=== PATIENT | female | born 1975 | race Caucasian/White ===

== ENCOUNTER 2017-04-20 09:45 | Outpatient (CLI) | payer MEDICAID ==
--- NOTE | 2017-04-23 18:05 | Mammography Report ---
EXAM: SCREENING DIGITAL MAMMOGRAM 04/22/2017 INDICATION: 41 year old for baseline The patient will need to return for additional imaging due to technical factors. We will contact the patient to schedule their return. IMPRESSION: Incomplete. RECOMMENDATION: Additional imaging. BIRADS Category: 0 - Incomplete. STANDARD QUALIFYING STATEMENTS 1. This examination was reviewed with the aid of Computer-Aided Detection (CAD) . 2. A negative or benign imaging report should not delay biopsy if clinically suspicious findings are present. Consider surgical consultation if warranted. More than 5% of cancers are not identified by imaging. 3. Dense breasts may obscure an underlying neoplasm. JOB #: [id number] EXT JOB #: [id number] WILFREDO
== END 2017-04-20 09:46 | disposition home or self-care (01) ==
LOC: DI 09:45
PROVIDERS: ATTEND Obstetrics & Gynecology
DX: Z12.31 Encounter for screening mammogram for malignant neoplasm of breast (principal)
CPT/HCPCS: 77067

== ENCOUNTER 2017-07-17 08:06 | Outpatient (CLI) | payer MEDICAID ==
--- NOTE | 2017-08-01 13:35 | Mammography Report ---
REVISED: ORIGINAL REPORT RELEASED 04/24/2017 @ 0623; ADDENDUM RELEASED 07/19/2017 @ 1600 REPORT & ADDENDUM MOVED TO [facility] [id number] ON 08/01/2017 jl EXAM: [id number] [facility] ([id number]) EXAM: SCREENING DIGITAL MAMMOGRAM 04/20/2017 INDICATION: 41 year old for baseline The patient will need to return for additional imaging due to technical factors. We will contact the patient to schedule their return. IMPRESSION: Incomplete. RECOMMENDATION: Additional imaging. BIRADS Category: 0 - Incomplete. STANDARD QUALIFYING STATEMENTS 1. This examination was reviewed with the aid of Computer-Aided Detection (CAD) . 2. A negative or benign imaging report should not delay biopsy if clinically suspicious findings are present. Consider surgical consultation if warranted. More than 5% of cancers are not identified by imaging. 3. Dense breasts may obscure an underlying neoplasm. JOB #: [id number] EXT JOB #: [id number] Parts Advisor: Reading Radiologist: Inderjit White MD Releasing Radiologist: Inderjit White MD Released Date Time: 04/24/17622 <Electronically signed by Inderjit White MD> cc: Javier Dumont MD; Eduardo Schroeder MD ADDENDUM ADDENDUM: The patient initially presented on 04/20/2017, and returned on 2016 for an additional image due to technical factors. This is the patient's baseline examination. TECHNIQUE: Routine CC and MLO projections were obtained of the breasts. FINDINGS: The breasts demonstrate heterogeneously dense fibroglandular parenchyma bilaterally. No suspicious masses, clustered microcalcifications, or regions of architectural distortion are identified. IMPRESSION: NEGATIVE EXAMINATION. RECOMMENDATION: Routine annual screening unless otherwise clinically indicated. BI-RADS category 1, negative. Addendum Parts Advisor: MICHAEL Addendum Reading Radiologist: Inderjit White MD Addendum Releasing Radiologist: Inderjit White MD Addendum Released Date Time: 07/19/17 1600 [facility]
--- NOTE | 2017-08-01 13:38 | Mammography Report ---
REVISED: ORIGINAL REPORT RELEASED 04/24/2017 @ 0623; ADDENDUM RELEASED 07/19/2017 @ 1600 REPORT & ADDENDUM MOVED TO [facility] [id number] ON 08/01/2017 jl EXAM: [id number] [facility] ([id number]) EXAM: SCREENING DIGITAL MAMMOGRAM 04/20/2017 INDICATION: 41 year old for baseline The patient will need to return for additional imaging due to technical factors. We will contact the patient to schedule their return. IMPRESSION: Incomplete. RECOMMENDATION: Additional imaging. BIRADS Category: 0 - Incomplete. STANDARD QUALIFYING STATEMENTS 1. This examination was reviewed with the aid of Computer-Aided Detection (CAD) . 2. A negative or benign imaging report should not delay biopsy if clinically suspicious findings are present. Consider surgical consultation if warranted. More than 5% of cancers are not identified by imaging. 3. Dense breasts may obscure an underlying neoplasm. 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 This is the patient's baseline examination. TECHNIQUE: Routine CC and MLO projections were obtained of the breasts. FINDINGS: The breasts demonstrate heterogeneously dense fibroglandular parenchyma bilaterally. No suspicious masses, clustered microcalcifications, or regions of architectural distortion are identified. IMPRESSION: NEGATIVE EXAMINATION. RECOMMENDATION: Routine annual screening unless otherwise clinically indicated. BI-RADS category 1, negative. Addendum Wind Turbine Electrical Engineer: MICHAEL Addendum Reading Radiologist: Inderjit White MD Addendum Releasing Radiologist: Inderjit White MD Addendum Released Date Time: 07/19/17 1600 [facility]
== END 2017-07-17 08:07 | disposition home or self-care (01) ==
LOC: DI 08:06
PROVIDERS: ATTEND Obstetrics & Gynecology
DX: Z12.31 Encounter for screening mammogram for malignant neoplasm of breast (principal)
CPT/HCPCS: 77067

== ENCOUNTER 2017-11-10 19:51 | Emergency (ER) | payer OTHER, MEDICAID ==
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
[2017-11-10] MEDS ORDERED: IBUPROFEN 600 MG TABLET PO STA (20:14)
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
[2017-11-10 21:40] VITALS: BP 140/81
== END 2017-11-10 21:43 | disposition home or self-care (01) ==
LOC: ED 19:51
DX: S16.1XXA Strain of muscle, fascia and tendon at neck level, initial encounter (principal); V89.2XXA Person injured in unspecified motor-vehicle accident, traffic, initial encounter; F17.200 Nicotine dependence, unspecified, uncomplicated
CPT/HCPCS: 72040; 99283; A9270

== ENCOUNTER 2018-01-26 13:24 | Emergency (ER) | payer BC, MEDICAID ==
[2018-01-26 13:35] VITALS: BP 116/89
--- NOTE | 2018-01-26 14:28 | ED Physician Documentation ---
PD HPI URI - Stated complaint Stated Complaint: COUGH/CHEST WALL PX - Chief complaint Chief Complaint: General - History obtained from History obtained from: Patient - History of Present Illness Timing - onset: Yesterday Timing duration: Days (2) Timing details: Abrupt onset, Still present Associated symptoms: Fever, Chills, Nasal congestion, Sore throat, Dry cough, Dyspnea. No: NVD, Bilateral edema Contributing factors: Sick contact (her daughter with same symptoms the past 5- 6 days and being seen in ED as well.) Improves by: No: Medication (tried OTC cough med) Worsened by: Activity, Breathing Similar symptoms before: Has not had sx before Recently seen: Not recently seen Review of Systems Constitutional: reports: Fever, Chills, Myalgias Nose: reports: Rhinorrhea / runny nose, Congestion Throat: reports: Sore throat Cardiac: denies: Chest pain / pressure, Palpitations Respiratory: reports: Dyspnea, Cough GI: denies: Nausea, Vomiting, Diarrhea Skin: denies: Rash, Lesions Neurologic: reports: Generalized weakness. 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: Tubal ligation - Present Medications Home Medications: Ambulatory Orders Medication Instructions Recorded Confirmed Alprazolam [Xanax] 0.5 mg PO Q6HR 11/10/17 01/26/18 Butalb/Acetaminophen/Caffeine 1 tab PO BID 11/10/17 01/26/18 [Yttyzn-Nrwmkash-Btjj 50-325-40] FLUoxetine [PROzac] 10 mg PO DAILY 11/10/17 01/26/18 Albuterol Sulf [Ventolin Hfa 1 - 2 puffs INH Q4HR PRN #1 inhaler 01/26/18 Inhaler] Benzonatate [Tessalon] 100 mg PO TID PRN #25 capsule 01/26/18 Dexamethasone [Decadron] 4 mg PO DAILY #5 tablet 01/26/18 - Allergies Allergies/Adverse Reactions: Allergies Allergy/AdvReac Type Severity Reaction Status Date / Time Penicillins Allergy Unknown Verified 01/26/18 13:35 - Social History Does the pt smoke?: Yes Smoking Status: Current every day smoker Does the pt drink ETOH?: No Does the pt have substance abuse?: No - Immunizations Immunizations are current?: Yes - POLST Patient has POLST: No PD ED PE NORMAL - Vitals Vital signs reviewed: Yes - General General: Alert and oriented X 3, No acute distress, Well developed/nourished - HEENT HEENT: Ears normal, Pharynx benign - Neck Neck: Supple, no meningeal sign, No adenopathy - Cardiac Cardiac: RRR, No murmur - Respiratory Respiratory: Clear bilaterally, Other (reptitive deep cough while in ER. ) - Abdomen Abdomen: Soft, Non tender - Back Back: No CVA TTP - Derm Derm: Normal color, Warm and dry, No rash - Neuro Neuro: Alert and oriented X 3, No motor deficit, Normal speech Results - Vitals Vitals: Oxygen O2 Source Room air PD MEDICAL DECISION MAKING - ED course Complexity details: considered differential (sounds like URI and her daughter with same symptoms for past 5-6 days. ), d/w patient Departure - Departure Disposition: 01 Home, Self Care Clinical Impression: Upper respiratory infection Qualifiers: URI type: unspecified URI Qualified Code(s): J06.9 - Acute upper respiratory infection, unspecified Condition: Stable Record reviewed to determine appropriate education?: Yes Instructions: ED Upper Resp Infec No Abx Tx Follow-Up: Eduardo Schroeder MD [Primary Care Provider] - Prescriptions: Albuterol Sulf [Ventolin Hfa Inhaler] 1 - 2 puffs INH Q4HR PRN #1 inhaler PRN Reason: Shortness Of Air/Wheezing Benzonatate [Tessalon] 100 mg PO TID PRN #25 capsule PRN Reason: Cough Dexamethasone [Decadron] 4 mg PO DAILY #5 tablet Comments: These infections are typically viral and so we treat the process of the symptoms rather than the germs themselves. We try to treat the inflammation irritation and spasming with albuterol inhaler 2 puffs 4 times a day for the next 7-10 days, Decadron steroid for inflammation for the next 5 days., And Tessalon if needed for cough. Tylenol or ibuprofen can be used for fevers and pains. He can still use cough drops or cough syrup as well. Symptoms should taper down over the next few days. The cough itself may persist some degree for a couple of weeks but usually mildly. Forms: Activity restrictions Discharge Date/Time: 01/26/18 15:22
[2018-01-26] MEDS ORDERED: BENZONATATE 100 MG CAPSULE PO STA (14:48)
[2018-01-26] MEDS ORDERED: DEXAMETHASONE 10 MG/ML VIAL PO STA (14:48)
== END 2018-01-26 15:22 | disposition home or self-care (01) ==
LOC: ED 13:24
DX: J06.9 Acute upper respiratory infection, unspecified (principal); F17.200 Nicotine dependence, unspecified, uncomplicated
CPT/HCPCS: 99283; A9270

== ENCOUNTER 2018-01-28 12:32 | Emergency (ER) | payer BC, MEDICAID ==
[2018-01-28 12:47] VITALS: BP 125/84
--- NOTE | 2018-01-28 13:25 | XRAY Preliminary Report ---
Exam: XR CHEST 2 VIEW X-RAY IMPRESSION: Normal 2-view chest radiography. [facility] SITE ID: [id number]
--- NOTE | 2018-01-28 13:29 | XRAY Report ---
EXAM: CHEST RADIOGRAPHY EXAM DATE: 01/28/2018 01:02 PM. CLINICAL HISTORY: Chest congestion and painful left ear for 4 days. Blood coming out of the left ear this morning. COMPARISON: None. TECHNIQUE: 2 views. FINDINGS: Lungs/Pleura: No focal opacities evident. No pleural effusion. No pneumothorax. Normal volumes. Mediastinum: Heart and mediastinal contours are unremarkable. Other: Cholecystectomy. IMPRESSION: Normal 2-view chest radiography. [facility] Referring Provider Line: [phone] SITE ID: [id number]
[2018-01-28] MEDS ORDERED: IBUPROFEN 800 MG TABLET PO STA (14:00)
--- NOTE | 2018-01-28 14:02 | ED Physician Documentation ---
History of Present Illness - Stated complaint Stated Complaint: CHEST CONGESTION/EAR PAIN - Chief complaint Chief Complaint: Heent - History obtained from History obtained from: Patient - History of Present Illness Timing: Last night Pain level max: 8 Pain level now: 7 - Additonal information Additional information: Patient is a 42-year-old female presents to the emergency department feeling ill since last week, last night developed sudden onset of left ear pain that is gotten progressively worse. States there was a small amount of bloody drainage this morning. Review of Systems Constitutional: denies: Fever, Chills Ears: reports: Ear pain Nose: reports: Rhinorrhea / runny nose, Congestion Throat: denies: Sore throat Cardiac: denies: Chest pain / pressure Respiratory: reports: Cough. 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 - Present Medications Home Medications: Ambulatory Orders Medication Instructions Recorded Confirmed Alprazolam [Xanax] 0.5 mg PO Q6HR 11/10/17 01/28/18 Butalb/Acetaminophen/Caffeine 1 tab PO BID 11/10/17 01/28/18 [Gfggjn-Wddkxbyd-Fjkp 50-325-40] FLUoxetine [PROzac] 10 mg PO DAILY 11/10/17 01/28/18 Albuterol Sulf [Ventolin Hfa 1 - 2 puffs INH Q4HR PRN #1 inhaler 01/26/18 Inhaler] Benzonatate [Tessalon] 100 mg PO TID PRN #25 capsule 01/26/18 01/28/18 Azithromycin [Zithromax] 0 mg PO DAILY #6 tablet 01/28/18 Hydrocodone/Acetaminophen 1 - 2 each PO Q6H PRN #12 tablet 01/28/18 [Hydrocodon-Acetaminophen 5-325] - Allergies Allergies/Adverse Reactions: Allergies Allergy/AdvReac Type Severity Reaction Status Date / Time Penicillins Allergy Unknown Verified 01/26/18 13:35 - Social History Does the pt smoke?: Yes Smoking Status: Current every day smoker Does the pt drink ETOH?: No Does the pt have substance abuse?: No - Immunizations Immunizations are current?: Yes - POLST Patient has POLST: No PD ED PE NORMAL - Vitals Vital signs reviewed: Yes - General General: Alert and oriented X 3, No acute distress, Well developed/nourished - HEENT HEENT: PERRL, Moist mucous membranes, Pharynx benign, Other (Right ear is normal. Left tympanic membrane is erythematous, dull, bulging with loss of landmarks. Purulent fluid present. No perforation is visualized. No mastoid tenderness) - Neck Neck: Supple, no meningeal sign, No adenopathy - Cardiac Cardiac: RRR, Strong equal pulses - Respiratory Respiratory: No respiratory distress, Clear bilaterally - Derm Derm: Warm and dry, No rash - Neuro Neuro: Alert and oriented X 3 - Psych Psych: Normal mood, Normal affect Results - Vitals Vitals: Oxygen O2 Source Room air - Rads (name of study) cxr Radiology: Prelim report reviewed, EMP read contemporaneously, See rad report ( No acute disease) PD MEDICAL DECISION MAKING - ED course Complexity details: reviewed old records, reviewed results, considered differential, d/w patient ED course: Patient is a 42-year-old female who presents to the emergency department with what appears to be a viral upper respiratory infection and a secondary left acute otitis media. Will place on pain medication and antibiotics for home. She is well-appearing, nontoxic. Patient counseled regarding signs and symptoms for which I believe and urgent re-evaluation would be necessary. Patient with good understanding of and agreement to plan and is comfortable going home at this time This document was made in part using voice recognition software. While efforts are made to proofread this document, sound alike and grammatical errors may occur. Departure - Departure Disposition: 01 Home, Self Care Clinical Impression: Otitis media Qualifiers: Otitis media type: suppurative Chronicity: acute Laterality: left Recurrence: not specified as recurrent Spontaneous tympanic membrane rupture: without spontaneous rupture Qualified Code(s): H66.002 - Acute suppurative otitis media without spontaneous rupture of ear drum, left ear Condition: Good Instructions: ED Otitis Media Acute Adult Follow-Up: Eduardo Schroeder MD [Primary Care Provider] - Within 1 week Prescriptions: Azithromycin [Zithromax] 0 mg PO DAILY #6 tablet Hydrocodone/Acetaminophen [Hydrocodon-Acetaminophen 5-325] 1 - 2 each PO Q6H PRN #12 tablet PRN Reason: pain Comments: Take all antibiotics until gone. Return if you worsen. Do not drink alcohol or drive while on narcotic pain medicine. Note that many narcotic pain relievers also contain tylenol/acetaminophen. Please ensure that your total dose of acetaminophen from all sources does not exceed 3 grams (3000mg) per day. You may constipated on this medication, take a stool softener such as "Colace" twice a day while you are on it. Also recommend a ypeq-eue-lgtetlu laxative such as senna or MiraLAX any day that you do not have a bowel movement. If you received narcotic pain medication in the emergency department, do not drive or operate machinery for the next 24 hours. Discharge Date/Time: 01/28/18 14:18
== END 2018-01-28 14:18 | disposition home or self-care (01) ==
LOC: ED 12:32
DX: H66.002 Acute suppurative otitis media without spontaneous rupture of ear drum, left ear (principal); F17.200 Nicotine dependence, unspecified, uncomplicated
CPT/HCPCS: 71046; 99283; A9270

== ENCOUNTER 2018-05-12 09:46 | Emergency (ER) | payer MEDICAID ==
[2018-05-12] MEDS ORDERED: IBUPROFEN 800 MG TABLET PO STA (10:47)
--- NOTE | 2018-05-12 10:47 | ED Physician Documentation ---
PD HPI LOWER EXT INJURY - Stated complaint Stated Complaint: R KNEE INJ - Chief complaint Chief Complaint: Ext Problem - History obtained from History obtained from: Patient - History of Present Illness PD HPI LOW EXT INJURY LOCATION: Right, Knee Type of injury: Twist Where injury occurred: Other (grocery store yesterday.) Timing - onset: Yesterday Timing - duration: Days (1) Timing - details: Gradual onset Pain level max: 6 Pain level now: 5 Improved by: Rest Worsened by: Moving, Palpating Associated symptoms: No: Weakness, Numbness, Tingling, Swelling Similar symptoms before: Has not had sx before Recently seen: Not recently seen Review of Systems Constitutional: denies: Fever, Chills GI: denies: Vomiting : denies: Now EGA Skin: denies: Rash Musculoskeletal: denies: Neck pain, Back pain PD PAST MEDICAL HISTORY - Past Medical History Past Medical History: Yes Cardiovascular: None Respiratory: None Endocrine/Autoimmune: None Psych: Depression, Anxiety - Past Surgical History Past Surgical History: Yes 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 - Present Medications Home Medications: Ambulatory Orders Medication Instructions Recorded Confirmed Alprazolam [Xanax] 0.5 mg PO Q6HR 11/10/17 01/28/18 Butalb/Acetaminophen/Caffeine 1 tab PO BID 11/10/17 01/28/18 [Nucxxl-Aidfowaq-Stdl 50-325-40] FLUoxetine [PROzac] 10 mg PO DAILY 11/10/17 01/28/18 Albuterol Sulf [Ventolin Hfa 1 - 2 puffs INH Q4HR PRN #1 inhaler 01/26/18 Inhaler] Benzonatate [Tessalon] 100 mg PO TID PRN #25 capsule 01/26/18 01/28/18 Azithromycin [Zithromax] 0 mg PO DAILY #6 tablet 01/28/18 Hydrocodone/Acetaminophen 1 - 2 each PO Q6H PRN #12 tablet 01/28/18 [Hydrocodon-Acetaminophen 5-325] - Allergies Allergies/Adverse Reactions: Allergies Allergy/AdvReac Type Severity Reaction Status Date / Time Penicillins Allergy Unknown Verified 05/12/18 09:52 - Social History Does the pt smoke?: Yes Smoking Status: Current every day smoker Does the pt drink ETOH?: No Does the pt have substance abuse?: No - Immunizations Immunizations are current?: Yes - POLST Patient has POLST: No PD ED PE NORMAL - Vitals Vital signs reviewed: Yes - General General: Alert and oriented X 3, No acute distress - HEENT HEENT: Moist mucous membranes - Neck Neck: Supple, no meningeal sign - Cardiac Cardiac: RRR - Respiratory Respiratory: No respiratory distress, Clear bilaterally - Derm Derm: Warm and dry - Extremities Extremities: Other (R knee - no significant bony tenderness over the knee. Does have MCL laxity. LCL, ACL, PCL intact. unable to tolerate meniscus testing. NVI) - Neuro Neuro: Alert and oriented X 3 Results - Vitals Vitals: Vital Signs - 24 hr 05/12/18 05/12/18 09:50 10:57 Temperature 36.5 C 36.9 C Heart Rate 87 64 Respiratory 18 16 Rate Blood Pressure 143/88 H 120/77 O2 Saturation 98 100 Oxygen O2 Source Room air PD MEDICAL DECISION MAKING - ED course Complexity details: considered differential, d/w patient ED course: Patient is a 42-year-old female presents to the emergency department with right knee pain, appears to be an MCL sprain. Placed an articulating knee brace and will have her follow-up with her doctor and/or orthopedics for further care. She is well-appearing, nontoxic. No evidence of infection. No bony tenderness. Will hold x-rays at this time. Patient counseled regarding signs and symptoms for which I believe and urgent re-evaluation would be necessary. Patient with good understanding of and agreement to plan and is comfortable going home at this time This document was made in part using voice recognition software. While efforts are made to proofread this document, sound alike and grammatical errors may occur. - Sepsis Event Vital Signs: Vital Signs - 24 hr 05/12/18 05/12/18 09:50 10:57 Temperature 36.5 C 36.9 C Heart Rate 87 64 Respiratory 18 16 Rate Blood Pressure 143/88 H 120/77 O2 Saturation 98 100 Oxygen O2 Source Room air Departure - Departure Disposition: 01 Home, Self Care Clinical Impression: Knee MCL sprain Qualifiers: Encounter type: initial encounter Laterality: right Qualified Code(s): S83.411A - Sprain of medial collateral ligament of right knee, initial encounter Condition: Good Instructions: ED Sprain Knee Collateral Ligaments Follow-Up: Eduardo Schroeder MD [Primary Care Provider] - Within 1 week Comments: It appears that you have sprained your MCL today. Return if you worsen. You should follow-up with your doctor in 1 week for repeat evaluation. Until then wear the knee immobilizer as this will help to prevent lateral instability in the knee. you may utilize Motrin or Tylenol as needed for pain. Discharge Date/Time: 05/12/18 11:17
[2018-05-12 10:58] VITALS: BP 120/77
== END 2018-05-12 11:17 | disposition home or self-care (01) ==
LOC: ED 09:46
DX: S83.411A Sprain of medial collateral ligament of right knee, initial encounter (principal); W01.0XXA Fall on same level from slipping, tripping and stumbling without subsequent striking against object, initial encounter; Y92.512 Supermarket, store or market as the place of occurrence of the external cause
CPT/HCPCS: 99283; A9270

== ENCOUNTER 2018-10-16 10:04 | Outpatient (CLI) | payer BC ==
[2018-10-16 11:49] LABS: THYROID STIMULATING HORMONE 1.43 uIU/mL (0.34-5.60)
[2018-10-16 11:51] LABS: FREE T4 (FREE THYROXINE) 0.63 ng/dL (0.58-1.64)
== END 2018-10-16 10:05 | disposition home or self-care (01) ==
LOC: LAB 10:04
PROVIDERS: ATTEND Nurse Practitioner Obstetrics & Gynecology
DX: R63.5 Abnormal weight gain (principal)
CPT/HCPCS: 36415; 82951; 82952; 84439; 84443

== ENCOUNTER 2020-09-30 17:57 | Emergency (ER) | payer BC, MEDICAID ==
[2020-09-30 18:29] LABS: RAPID STREP SCREEN Negative (Negative)
--- NOTE | 2020-09-30 18:43 | ED Physician Documentation ---
History of Present Illness - Stated complaint Stated Complaint: SORE THROAT/COUGH - Chief complaint Chief Complaint: Heent - History obtained from History obtained from: Patient - History of Present Illness Timing: Prior to arrival - Additonal information Additional information: 45-year-old female presents emergency department with acute onset sore throat that began today. She reports it feels like sandpaper in her throat. No fevers. Positive dry cough. No congestion. No tonsillar exudate. She has no chest pain or shortness of breath. No abdominal pain nausea or vomiting. Non- smoker Review of Systems Constitutional: denies: Fever, Myalgias, Fatigue Eyes: reports: Reviewed and negative Ears: reports: Reviewed and negative Nose: denies: Rhinorrhea / runny nose, Congestion Throat: reports: Sore throat. 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 - Present Medications Home Medications: Ambulatory Orders Medication Instructions Recorded Confirmed Alprazolam [Xanax] 0.5 mg PO Q6HR 11/10/17 01/28/18 Butalb/Acetaminophen/Caffeine 1 tab PO BID 11/10/17 01/28/18 [Xompwa-Wvbgygrv-Ymza 50-325-40] FLUoxetine [PROzac] 10 mg PO DAILY 11/10/17 01/28/18 Albuterol Sulf [Ventolin Hfa 1 - 2 puffs INH Q4HR PRN #1 inhaler 01/26/18 01/28/18 Inhaler] Benzonatate [Tessalon] 100 mg PO TID PRN #25 capsule 01/26/18 01/28/18 Azithromycin [Zithromax] 0 mg PO DAILY #6 tablet 01/28/18 Hydrocodone/Acetaminophen 1 - 2 each PO Q6H PRN #12 tablet 01/28/18 [Hydrocodon-Acetaminophen 5-325] - Allergies Allergies/Adverse Reactions: Allergies Allergy/AdvReac Type Severity Reaction Status Date / Time Penicillins Allergy Unknown Verified 09/30/20 18:11 - Social History Does the pt smoke?: Yes Smoking Status: Current every day smoker Does the pt drink ETOH?: No Does the pt have substance abuse?: No - Immunizations Immunizations are current?: Yes - POLST Patient has POLST: No PD ED PE EXPANDED - General General: Alert, No acute distress - HEENT HEENT: Atraumatic, PERRL, Ears normal, Pharyngeal erythema (Posterior oropharynx erythema without tonsillar exudate. Uvula is midline. No soft palate asymmetry or swelling.), Dentition normal. No: Swollen tonsils, Tonsillar exudate, Soft palate petecchiae - Neck Neck: Supple w/out meningeal sx, No tenderness. No: Adenopathy - Cardiac Cardiac: Regular Rate, Radial strong equal, Cap refill < 2 sec - Respiratory Respiratory: Clear to ausultation fiorella. No: Distress, Labored - Abdomen Abdomen: Normal Bowel sounds. No: Tender to palpation - Neuro Neuro: Alert and Oriented X 3, CNII-XII intact Results - Vitals Vitals: Vital Signs - 24 hr 09/30/20 18:06 Temperature 36.2 C L Heart Rate 85 Respiratory 16 Rate Blood Pressure 167/105 H O2 Saturation 97 Oxygen O2 Source Room air - Labs Labs: Laboratory Tests 09/30/20 18:17 Group A Strep Rapid Negative PD MEDICAL DECISION MAKING - ED course Complexity details: reviewed results, considered differential, d/w patient ED course: 45-year-old female presents emergency department for evaluation of acute sore throat. Rapid strep is negative. By [facility] criteria she does not meet the requirements for empiric antibiotics. Will defer unless culture is positive. Her cardiopulmonary exam is unremarkable. No hypoxia or tachypnea. However we will screen for COVID-19. I did recommend NSAID or Tylenol [id number] p henry warm salt water gargles and Hydration. 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 Emergent return precautions discussed Departure - Departure Disposition: 01 Home, Self Care Clinical Impression: Sore throat, Encounter for screening laboratory testing for COVID-19 virus Condition: Stable Record reviewed to determine appropriate education?: Yes Instructions: ED Pharyngitis Viral Comments: Your rapid strep test is negative. As we discussed we will only prescribe antibiotics if the culture is positive. However the most likely cause of your sore throat and cough is a virus. We are screening you for COVID-19. You have a Covid test pending. You need to self quarantine until the result is done and negative. Do not leave your house. Do not get near anybody. The results should be done in 48 to 72 hours. We will call with a positive result, the fastest way to get a negative result for confirmation though is to go to the hospital website at [email or web address], click on the my [facility] [employer] tab and sign up for the patient portal. If any friends or family get sick and would like to have a Covid test done, but do not have signs or symptoms that would necessitate being hospitalized, we enc ourage testing through our coronavirus swabbing station, call [phone] to schedule an appointment. Return to the emergency department if you lose the ability to swallow or handle your oral secretions, or suddenly short of breath or have severe chest pain or feel that you cannot breathe adequately. Please continue to take the Tylenol and ibuprofen at home for pain control. I do recommend that you continue to gargle with warm salt water and stay very well-hydrated.
[2020-09-30 18:52] VITALS: BP 154/98
== END 2020-09-30 18:52 | disposition home or self-care (01) ==
LOC: ED 17:57
DX: J02.9 Acute pharyngitis, unspecified (principal); R05 Cough; Z20.828 Contact with and (suspected) exposure to other viral communicable diseases; F17.200 Nicotine dependence, unspecified, uncomplicated; Z88.0 Allergy status to penicillin
CPT/HCPCS: 87070; 87430; 99282; 99283

== ENCOUNTER 2020-11-19 08:00 | Outpatient (CLI) | payer MEDICAID ==
[2020-11-19 21:29] LABS: CANDIDA GROUP DNA POSITIVE (NEGATIVE); CANDIDA KRUSEI DNA NEGATIVE (NEGATIVE); TRICHOMONAS VAGINALIS DNA NEGATIVE (NEGATIVE)
== END 2020-11-19 23:59 | disposition home or self-care (01) ==
LOC: LAB.R 08:00
PROVIDERS: ATTEND Nurse Practitioner Obstetrics & Gynecology
DX: N76.0 Acute vaginitis (principal)
CPT/HCPCS: 87661; 87801

== ENCOUNTER 2020-11-23 18:39 | Outpatient (CLI) | payer MEDICAID ==
--- NOTE | 2020-11-24 09:06 | Ultrasound Report ---
PROCEDURE: Pelvic w/Transvaginal INDICATIONS: LT PELVIC PAIN, LT SIDE OVARIAN CYST TECHNIQUE: Real-time scanning was performed of the pelvic organs, with image documentation. Additional endovagi nal scanning was necessary due to incomplete visualization of the adnexal and endometrial structures by transabdominal scanning. COMPARISON: None. FINDINGS: No pathologic free abdominal or pelvic fluid. Uterus: Uterus is normal in size at 5.2 x 5.7 x 9.6 cm. The endometrium measures 9.6 mm in combined thickness. A suspected right-sided posterior small subserosal fibroid is identified, measuring 1.0 x 0.7 x 1.1 cm. Ovaries: The right ovary measures 2.9 x 2.1 x 3.2 cm with a simple cyst measuring up to 1.9 cm in ma ximal dimension. The left ovary measures 2.2 x 1.7 x 2.3 cm, and there is a small echogenic focus marcella suring up to 1.6 cm within the left ovary likely represents a resolving hemorrhagic ovarian cyst. IMPRESSION: A definite source of left-sided pelvic pain is not seen. There is a small echogenic focus at the left ovary however that may represent an involuting hemorrhagic left ovarian cyst measuring only 1.6 cm i n maximal dimension. No abnormal adjacent free fluid is seen. Normal-appearing endometrial lining. Po ssible small 1.1 cm uterine fibroid at the posterior right fundus. Reviewed by: Dustin Salas MD on 11/24/2020 9:05 AM PST Approved by: Dustin Salas MD on 11/24/2020 9:05 AM PST Station ID: [id number]
== END 2020-11-23 18:40 | disposition home or self-care (01) ==
LOC: DI 18:39
PROVIDERS: ATTEND Nurse Practitioner Obstetrics & Gynecology
DX: R10.2 Pelvic and perineal pain (principal); N83.202 Unspecified ovarian cyst, left side

== ENCOUNTER 2022-08-19 10:29 | Emergency (ER) | payer MEDICAID ==
[2022-08-19 10:39] VITALS: BP 152/92
[2022-08-19] MEDS ORDERED: KETOROLAC 60 MG/2 ML VIAL IM STA (10:52)
--- NOTE | 2022-08-19 10:57 | ED Physician Documentation ---
PD HPI LOWER EXT INJURY - Stated complaint Stated Complaint: BOTH LEGS PX - Chief complaint Chief Complaint: Ext Problem - History obtained from History obtained from: Patient - Additional information Additional information: She is trying to get back in shape and lose some weight and 2 nights ago she was doing yoga and since then she has had pain in both hips in the groin on both sides. It is worse if she lifts the legs. No back pain. No weakness numbness or tingling in the legs. 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 - Present Medications Home Medications: Ambulatory Orders Medication Instructions Recorded Confirmed ALPRAZolam [Xanax] 0.5 mg PO Q6HR PRN 11/10/17 08/19/22 Buspirone HCl 7.5 mg PO BID 08/19/22 08/19/22 Cyclobenzaprine [Flexeril] 10 mg PO TID PRN #20 tablet 08/19/22 HYDROcod/ACETAM 5/325 [[place] 5/325] 1 - 2 tab PO Q6H PRN #15 tablet 08/19/22 Sumatriptan Succinate [Imitrex] 100 mg PO PRN PRN 08/19/22 08/19/22 buPROPion HCL [Bupropion Xl] 150 mg PO DAILY 08/19/22 08/19/22 - Allergies Allergies/Adverse Reactions: Allergies Allergy/AdvReac Type Severity Reaction Status Date / Time Penicillins Allergy Unknown Verified 08/19/22 10:38 - Social History Does the pt smoke?: Yes Smoking Status: Current every day smoker Does the pt drink ETOH?: No Does the pt have substance abuse?: No - Immunizations Immunizations are current?: Yes - POLST Patient has POLST: No PD ED PE NORMAL - Vitals Vital signs reviewed: Yes - General General: Alert and oriented X 3, No acute distress - Abdomen Abdomen: Normal bowel sounds, Soft, Non tender - Back Back: No CVA TTP, No spinal TTP - Derm Derm: Normal color, Warm and dry - Extremities Extremities: Other (I am not able to elicit any tenderness in the groin or over the hips. She does have significant pain with flexion at both hips and because of pain cannot hold either leg off the bed for long period internal and external rotation of the legs is painless.) - Neuro Neuro: Alert and oriented X 3, Normal speech Results - Vitals Vitals: Vital Signs - 24 hr 08/19/22 10:37 Temperature 36.1 C L Heart Rate 75 Respiratory 14 Rate Blood Pressure 152/92 H O2 Saturation 100 Oxygen O2 Source Room air PD MEDICAL DECISION MAKING - ED course ED course: 46-year-old woman with bilateral hip flexor strains resistant to OTC medications. Departure - Departure Disposition: 01 Home, Self Care Clinical Impression: Strain of flexor muscle of left hip Qualifiers: Encounter type: initial encounter Qualified Code(s): S76.012A - Strain of muscle, fascia and tendon of left hip, initial encounter Strain of flexor muscle of right hip Qualifiers: Encounter type: initial encounter Qualified Code(s): S76.011A - Strain of muscle, fascia and tendon of right hip, initial encounter Condition: Good Record reviewed to determine appropriate education?: Yes Instructions: ED Strain Muscle Ext Prescriptions: Cyclobenzaprine [Flexeril] 10 mg PO TID PRN #20 tablet PRN Reason: Spasms HYDROcod/ACETAM 5/325 [[place] 5/325] 1 - 2 tab PO Q6H PRN #15 tablet PRN Reason: Pain Comments: Heat, light activity and gentle stretching. You can use ibuprofen in addition to the prescription pain medications. Follow-up with your doctor in a week if not better. Return for new or worsening symptoms. Discharge Date/Time: 08/19/22 11:13
== END 2022-08-19 11:13 | disposition home or self-care (01) ==
LOC: ED 10:29
DX: S76.012A Strain of muscle, fascia and tendon of left hip, initial encounter (principal); S76.011A Strain of muscle, fascia and tendon of right hip, initial encounter; Y93.B9 Activity, other involving muscle strengthening exercises; F17.200 Nicotine dependence, unspecified, uncomplicated
CPT/HCPCS: 96372; 99282; 99283

== ENCOUNTER 2022-10-25 09:22 | Outpatient (CLI) | payer MEDICAID ==
[2022-10-25 09:41] LABS: BASOPHILS # (AUTO) 0.1 10^3/uL (0.0-0.1); BASOPHILS % (AUTO) 0.6 %; EOSINOPHILS # (AUTO) 0.1 10^3/uL (0.0-0.7); EOSINOPHILS % (AUTO) 0.9 %; HCT - HEMATOCRIT 42.9 % (37.0-47.0); LYMPHOCYTES # (AUTO) 2.7 10^3/uL (1.5-3.5); LYMPHOCYTES % (AUTO) 30.2 %; MEAN CORPUSCULAR HEMOGLOBIN 30.9 pg (27.0-31.0); MEAN CORPUSCULAR HGB CONC 32.6 g/dL (32.0-36.0); MEAN CORPUSCULAR VOLUME 94.7 fL (81.0-99.0); MEAN PLATELET VOLUME 9.6 fL (7.9-10.8); MONOCYTES # (AUTO) 0.9 10^3/uL (0.0-1.0); MONOCYTES % (AUTO) 9.9 %; NEUTROPHILS # (AUTO) 5.3 10^3/uL (1.5-6.6); NEUTROPHILS % (AUTO) 58.2 %; PLT - PLATELET COUNT 346 10^3/uL (130-450); RED BLOOD COUNT 4.53 10^6/uL (4.20-5.40); RED CELL DISTRIBUTION WIDTH 13.6 % (12.0-15.0)
[2022-10-25 10:08] LABS: THYROID STIMULATING HORMONE 1.9 uIU/mL (0.34-5.60)
[2022-10-25 10:10] LABS: FREE T4 (FREE THYROXINE) 0.69 ng/dL (0.58-1.64)
[2022-10-25 10:35] LABS: ESTIMATED AVERAGE GLUCOSE 117 mg/dL (70-100); HEMOGLOBIN A1c% 5.7 % (4.27-6.07)
[2022-10-25 10:49] LABS: ALBUMIN/GLOBULIN RATIO 1.2 (1.0-2.2); ALKALINE PHOSPHATASE 74 IU/L (42-121); ALT ALANINE AMINOTRANSFERASE 18 IU/L (10-60); AST ASPARTATE AMINOTRANSFERASE 16 IU/L (10-42); BILIRUBIN,TOTAL 0.5 mg/dL (0.2-1.0); BUN - BLOOD UREA NITROGEN 8 mg/dL (6-20); CALCIUM 9.3 mg/dL (8.5-10.3); CARBON DIOXIDE - CO2 25 mmol/L (21-32); CHLORIDE 103 mmol/L (101-111); CHOL/HDL RATIO 3.4 (<4.4); CHOLESTEROL 188 mg/dL; CREATININE 0.8 mg/dL (0.4-1.0); GFR - MDRD 77 (>89); GLUCOSE 103 mg/dL (70-100); HDL CHOLESTEROL 56 mg/dL; LDL CHOLESTEROL,CALCULATED 120 mg/dL; LDL/HDL RATIO 2.1 (<4.4); POTASSIUM 4.6 mmol/L (3.5-5.0); SODIUM 135 mmol/L (135-145); TOTAL PROTEIN 7.3 g/dL (6.7-8.2); TRIGLYCERIDES 59 mg/dL; VLDL CHOLESTEROL 12 mg/dL
== END 2022-10-25 09:23 | disposition home or self-care (01) ==
LOC: LAB 09:22
PROVIDERS: ATTEND Nurse Practitioner
DX: N92.6 Irregular menstruation, unspecified (principal); R53.83 Other fatigue; H02.63 Xanthelasma of right eye, unspecified eyelid; H02.66 Xanthelasma of left eye, unspecified eyelid; R73.01 Impaired fasting glucose; Z13.220 Encounter for screening for lipoid disorders; E66.9 Obesity, unspecified
CPT/HCPCS: 36415; 80053; 80061; 83036; 83721; 84403; 84439; 84443; 85025

== ENCOUNTER 2022-10-25 13:15 | Emergency (ER) | payer MEDICAID ==
[2022-10-25 13:46] VITALS: BP 174/89
--- OUTSIDE RECORDS SUMMARY | 2022-10-25 13:55 | EXTERNAL MEDICAL SUMMARY RPT | Continuity of Care Document ---
:1975 Author Organization [facility] Address [address] [place] [address] Phone Care Team Providers Name Role Phone Unavailable Unavailable Unavailable Eleno Soares Cnm, Alicia Unavailable Unavailable Allergies No information. Encounters No information. Functional Status No information. Immunizations No information. Medications date description facility 2022-09-12 00:00 lorazepam All 2022-09-12 00:00 estradiol All 2022-09-12 00:00 hydroxyzine pamoate All 2022-09-12 00:00 hydroxyzine pamoate All 2022-09-12 00:00 lorazepam All 2022-09-12 00:00 phentermine All 2022-09-12 00:00 phentermine All 2022-09-12 00:00 lorazepam All 2022-09-12 00:00 estradiol All 2022-09-12 00:00 estradiol All 2022-09-12 00:00 sertraline All 2022-09-12 00:00 sertraline All 2022-09-12 00:00 estradiol All 2022-09-12 00:00 lorazepam All 2022-09-12 00:00 hydroxyzine pamoate All 2022-09-12 00:00 sertraline All 2022-09-12 00:00 phentermine All 2022-09-12 00:00 sertraline All 2022-09-12 00:00 phentermine All 2022-09-12 00:00 hydroxyzine pamoate All Problems date description facility 2022-09-12 00:00 Unspecified episodic mood disorder All 2022-09-12 00:00 Atrophy of vagina All 2022-09-12 00:00 Mild mood disorder All 2022-09-12 00:00 Xanthelasma of eyelid All 2022-09-12 00:00 Obesity All 2022-09-12 00:00 Procedure carried out on subject All 2022-09-12 00:00 Xanthoma of eyelid All 2022-09-12 00:00 Obesity, unspecified All 2022-09-12 00:00 Unspecified mood [affective] disorder All 2022-09-12 00:00 Xanthelasma of unspecified eye, unspeci fied eyelid All 2022-09-12 00:00 Postmenopausal atrophic vaginitis All 2022-09-12 00:00 Screening for lipoid disorders All 2022-09-12 00:00 Encounter for screening for lipoid diso rders All Procedures date description facility 2022-09-12 00:00 Visit Code Hold All Results/Labs No information. Social History date description facility 2022-09-12 00:00 Former smoker All Vital Signs date measurement value units 2022-09-12 00:00 BMI 36.93 kg/m2 2022-09-12 00:00 BP_diastolic 86 mmHg 2022-09-12 00:00 BP_systolic 122 mmHg 2022-09-12 00:00 height_metric 167.64 cm 2022-09-12 00:00 height_standard 66 in 2022-09-12 00:00 temperature_metric 36.44 C 2022-09-12 00:00 temperature_standard 97.6 F 2022-09-12 00:00 weight_metric 103.42 kg 2022-09-12 00:00 weight_standard 228 lb
--- NOTE | 2022-10-25 14:49 | ED Physician Documentation ---
PD HPI LOWER EXT INJURY - Stated complaint Stated Complaint: FALL, R KNEE PX - Chief complaint Chief Complaint: Trauma Ext - History obtained from History obtained from: Patient - Additional information Additional information: She was walking in a store today and slipped. Her knee did something funny and now has internal right knee pain. She did not fall. No other injuries. She is able to walk and bear weight. 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 - Present Medications Home Medications: Ambulatory Orders Medication Instructions Recorded Confirmed ALPRAZolam [Xanax] 0.5 mg PO Q6HR PRN 11/10/17 08/19/22 Buspirone HCl 7.5 mg PO BID 08/19/22 08/19/22 Cyclobenzaprine [Flexeril] 10 mg PO TID PRN #20 tablet 08/19/22 HYDROcod/ACETAM 5/325 [[place] 5/325] 1 - 2 tab PO Q6H PRN #15 tablet 08/19/22 Sumatriptan Succinate [Imitrex] 100 mg PO PRN PRN 08/19/22 08/19/22 buPROPion HCL [Bupropion Xl] 150 mg PO DAILY 08/19/22 08/19/22 HYDROcod/ACETAM 5/325 [[place] 5/325] 1 - 2 tab PO Q6H PRN #15 tablet 10/25/22 - Allergies Allergies/Adverse Reactions: Allergies Allergy/AdvReac Type Severity Reaction Status Date / Time Penicillins Allergy Unknown Verified 10/25/22 13:46 - Social History Does the pt smoke?: Yes Smoking Status: Current every day smoker Does the pt drink ETOH?: No Does the pt have substance abuse?: No - Immunizations Immunizations are current?: Yes - POLST Patient has POLST: No PD ED PE NORMAL - Vitals Vital signs reviewed: Yes - General General: Alert and oriented X 3, No acute distress - Back Back: No CVA TTP, No spinal TTP - Derm Derm: Normal color, Warm and dry - Extremities Extremities: Other (There is a small effusion of the right knee without obvious bony tenderness. ACL, PCL, LCL, MCL testing is intact and relatively painless. Positive grind testing especially with inversion of the right foot.) - Neuro Neuro: Alert and oriented X 3, Normal speech Results - Vitals Vitals: Vital Signs - 24 hr 10/25/22 13:44 Temperature 36.9 C Heart Rate 84 Respiratory 20 Rate Blood Pressure 174/89 H O2 Saturation 96 Oxygen O2 Source Room air - Rads (name of study) R knee 4v - NAD Radiology: Final report received, EMP read indepedently Departure - Departure Disposition: Home, Self Care Clinical Impression: Right knee sprain Qualifiers: Encounter type: initial encounter Involved ligament of knee: unspecified ligament Qualified Code(s): S83.91XA - Sprain of unspecified site of right knee, initial encounter Condition: Good Record reviewed to determine appropriate education?: Yes Instructions: ED Sprain Knee Follow-Up: [facility] [Provider Group] Prescriptions: HYDROcod/ACETAM 5/325 [[place] 5/325] 1 - 2 tab PO Q6H PRN #15 tablet PRN Reason: Pain Comments: As discussed, I suspect you may have a medial meniscus injury based on your exam. Follow-up with the orthopedic surgeon, calling for an X available appointment. Return for new or worsening symptoms. Tylenol and/or ibuprofen per package instructions for pain. Wear the splint as needed for comfort but you do not need to wear it in bed or while bathing of course.
--- NOTE | 2022-10-25 14:54 | XRAY Report ---
PROCEDURE: Knee 4 View RT INDICATIONS: Trauma TECHNIQUE: 3 views of the right knee(s) were acquired. COMPARISON: None. FINDINGS: Bones: No fractures or dislocations. No suspicious bony lesions. Soft tissues: No joint effusion. No suspicious soft tissue calcifications. IMPRESSION: No acute fracture. No osseous lesion. If symptoms and/or clinical suspicion for patholog y continue, further assessment with repeat plain films, or advanced imaging (e.g., CT, MRI, or bone s can) is recommended for further assessment. Reviewed by: Cary Dowd MD on 10/25/2022 2:53 PM PST Approved by: Cary Dowd MD on 10/25/2022 2:53 PM PST Station ID: [id number]
== END 2022-10-25 15:04 | disposition home or self-care (01) ==
LOC: ED 13:15
DX: S83.91XA Sprain of unspecified site of right knee, initial encounter (principal); W18.40XA Slipping, tripping and stumbling without falling, unspecified, initial encounter; Y93.01 Activity, walking, marching and hiking; Y92.512 Supermarket, store or market as the place of occurrence of the external cause; F17.200 Nicotine dependence, unspecified, uncomplicated; N92.6 Irregular menstruation, unspecified; R53.83 Other fatigue; H02.63 Xanthelasma of right eye, unspecified eyelid; H02.66 Xanthelasma of left eye, unspecified eyelid; R73.01 Impaired fasting glucose; Z13.220 Encounter for screening for lipoid disorders; E66.9 Obesity, unspecified
CPT/HCPCS: 36415; 80053; 80061; 83036; 83721; 84403; 84439; 84443; 85025; 99283

== ENCOUNTER 2023-02-05 08:00 | Outpatient (CLI) | payer MEDICAID ==
[2023-02-06 18:35] LABS: CHLAMYDIA TRACHOMATIS DNA NEGATIVE (NEGATIVE)
[2023-02-06 18:36] LABS: NEISSERIA GONORRHOEAE DNA NEGATIVE (NEGATIVE)
[2023-02-06 20:33] LABS: BACTERIAL VAGINOSIS DNA NEGATIVE (NEGATIVE); CANDIDA GLABRATA DNA NEGATIVE (NEGATIVE); CANDIDA GROUP DNA POSITIVE (NEGATIVE); CANDIDA KRUSEI DNA NEGATIVE (NEGATIVE); TRICHOMONAS VAGINALIS DNA NEGATIVE (NEGATIVE)
== END 2023-02-05 08:01 | disposition home or self-care (01) ==
LOC: LAB.WC 08:00
PROVIDERS: ATTEND Nurse Practitioner
DX: N89.8 Other specified noninflammatory disorders of vagina (principal)
CPT/HCPCS: 81514; 87491; 87591; 87661

== ENCOUNTER 2024-01-22 13:25 | Emergency (ER) | payer MEDICAID ==
[2024-01-22 13:57] LABS: BASOPHILS % (AUTO) 0.1 %; EOSINOPHILS % (AUTO) 0.4 %; HCT - HEMATOCRIT 46.9 % (37.0-47.0); HGB - HEMOGLOBIN 14.9 g/dL (12.0-16.0); LYMPHOCYTES # (AUTO) 1.4 10^3/uL (1.5-3.5); LYMPHOCYTES % (AUTO) 17.8 %; MEAN CORPUSCULAR HEMOGLOBIN 30.4 pg (27.0-31.0); MEAN CORPUSCULAR HGB CONC 31.8 g/dL (32.0-36.0); MEAN CORPUSCULAR VOLUME 95.7 fL (81.0-99.0); MEAN PLATELET VOLUME 9.5 fL (7.9-10.8); MONOCYTES % (AUTO) 12.7 %; NEUTROPHILS # (AUTO) 5.4 10^3/uL (1.5-6.6); NEUTROPHILS % (AUTO) 68.9 %; PLT - PLATELET COUNT 355 10^3/uL (130-450); RED CELL DISTRIBUTION WIDTH 12.9 % (12.0-15.0); WHITE BLOOD COUNT 7.8 x10^3/uL (4.8-10.8)
[2024-01-22 14:11] LABS: HCG UR QUAL NEGATIVE
[2024-01-22 14:15] LABS: BILIRUBIN,URINE SMALL (NEGATIVE); GLUCOSE, URINE (UA) NEGATIVE (NEGATIVE); KETONES,URINE (UA) TRACE mg/dL (NEGATIVE); LEUKOCYTE ESTERASE, URINE NEGATIVE (NEGATIVE); NITRITE,URINE NEGATIVE (NEGATIVE); OCCULT BLOOD,URINE TRACE-INTA (NEGATIVE); PROTEIN,URINE TRACE mg/dL (NEGATIVE); UROBILINOGEN,URINE 1 (NORMAL) E.U./dL (NORMAL)
[2024-01-22 14:17] LABS: ALBUMIN 4.3 g/dL (3.2-5.5); ALBUMIN/GLOBULIN RATIO 1.3 (1.0-2.2); BILIRUBIN,TOTAL 0.6 mg/dL (0.2-1.0); CALCIUM 9.5 mg/dL (8.5-10.3); POTASSIUM 3.9 mmol/L (3.5-4.5); TOTAL PROTEIN 7.5 g/dL (6.4-8.9)
[2024-01-22 14:17] LABS: CLARITY,URINE CLEAR (CLEAR)
[2024-01-22 15:23] VITALS: BP 146/98; O2SAT 98
--- NOTE | 2024-01-22 15:43 | ED Physician Documentation ---
PD HPI ABD PAIN - Stated complaint Stated Complaint: STOMACH PX,N/V/D - Chief complaint Chief Complaint: Abd Pain - History obtained from History obtained from: Patient - Additional information Additional information: Patient is a 48-year-old female with history of prior cholecystectomy presenting for evaluation of epigastric abdominal pain starting last night after she had [place] food. Reports having several episodes of emesis last night but still having pain today. Has had a few soft stools today but no diarrhea. No blood in emesis or stools. Has not tried anything for her pain. Denies fever, cough, chest pain or difficulty breathing. No dysuria or hematuria. Review of Systems Constitutional: denies: Fever Cardiac: denies: Chest pain / pressure Respiratory: denies: Dyspnea GI: reports: Abdominal Pain, Nausea, Vomiting. 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 - Present Medications Home Medications: Ambulatory Orders Medication Instructions Recorded Confirmed ALPRAZolam [Xanax] 0.5 mg PO Q6HR PRN 11/10/17 01/22/24 Cyclobenzaprine [Flexeril] 10 mg PO TID PRN #20 tablet 08/19/22 01/22/24 Sumatriptan Succinate [Imitrex] 100 mg PO PRN PRN 08/19/22 01/22/24 buPROPion HCL [Bupropion Xl] 150 mg PO DAILY 08/19/22 01/22/24 DULoxetine [Cymbalta] 60 mg PO DAILY 01/22/24 01/22/24 Ondansetron Odt [Zofran] 4 mg TL Q6H PRN #10 tablet 01/22/24 - Allergies Allergies/Adverse Reactions: Allergies Allergy/AdvReac Type Severity Reaction Status Date / Time Penicillins Allergy Unknown Verified 01/22/24 13:38 - Social History Does the pt smoke?: Yes Smoking Status: Current every day smoker Does the pt drink ETOH?: No Does the pt have substance abuse?: No - Immunizations Immunizations are current?: Yes - POLST Patient has POLST: No PD ED PE NORMAL - General General: Alert and oriented X 3, No acute distress, Well developed/nourished - HEENT HEENT: Atraumatic, Moist mucous membranes - Neck Neck: Supple, no meningeal sign - Cardiac Cardiac: RRR, Strong equal pulses - Respiratory Respiratory: No respiratory distress, Clear bilaterally - Abdomen Abdomen: Normal bowel sounds, Soft, Non distended, Other (Epigastric tenderness to palpation) - Derm Derm: Warm and dry - Neuro Neuro: Alert and oriented X 3, No motor deficit, Normal speech Results - Vitals Vitals: Oxygen O2 Source Room air - Labs Labs: Laboratory Tests 01/22/24 01/22/24 01/22/24 13:50 13:50 13:59 WBC 7.8 RBC 4.90 Hgb 14.9 Hct 46.9 MCV 95.7 MCH 30.4 MCHC 31.8 L RDW 12.9 Plt Count 355 MPV 9.5 Neut # (Auto) 5.4 Lymph # (Auto) 1.4 L [place] # (Auto) 1.0 Eos # (Auto) 0.0 Baso # (Auto) 0.0 Absolute Nucleated RBC 0.00 Nucleated RBC % 0.0 Sodium 135 Potassium 3.9 Chloride 102 Carbon Dioxide 29 Anion Gap 4.0 L BUN 12 Creatinine 1.0 Estimated GFR (MDRD) 59 L Glucose 115 H Calcium 9.5 Total Bilirubin 0.6 AST 16 ALT 16 Alkaline Phosphatase 90 Total Protein 7.5 Albumin 4.3 Globulin 3.2 Albumin/Globulin Ratio 1.3 Lipase 17 Urine Color DARK YELLOW Urine Clarity CLEAR Urine pH 6.0 Ur Specific [place] >=1.030 H Urine Protein TRACE Urine Glucose (UA) NEGATIVE Urine Ketones TRACE Urine Occult Blood TRACE-INTA Urine Nitrite NEGATIVE Urine Bilirubin SMALL H Urine Urobilinogen 1 (NORMAL) Ur Leukocyte Esterase NEGATIVE Ur Microscopic Review NOT INDICATED Urine Culture Comments NOT INDICATED Urine HCG, Qual NEGATIVE PD Medical Decision Making - ED course Complexity details: reviewed results, re-evaluated patient, d/w patient ED course: Pt with epigastric abdominal pain/ vomiting/loose stools since having [place] food yesterday. Still with nausea today. Mild pain on exam. CBC, chemistries, UA reviewed. Pt feeling better here with zofran and GI cocktail. Counseled on continued supportive care as well as concerning symptoms to return for. Repeat abdominal exam is benign. Departure - Departure Disposition: 01 Home, Self Care Clinical Impression: Epigastric abdominal pain, Nausea & vomiting Condition: Stable Instructions: ED Nausea Vomiting Prescriptions: Ondansetron Odt [Zofran] 4 mg TL Q6H PRN #10 tablet PRN Reason: Nausea / Vomiting Comments: Your labs do not show any significant electrolyte abnormalities. We have given you medication to help with the nausea as well as pain. I would recommend a bland diet today and I have sent a prescription for antinausea medication to [facility] in [place]. Return to the ER if you develop any worsening symptoms. Forms: PCP List Discharge Date/Time: 01/22/24 16:36
[2024-01-22] MEDS: LIDOCAINE VISCOUS 2% 15 ML UDC MM STA (16:01)
[2024-01-22] MEDS: MAG HYDROX/AL HYDROX/SIMETH 30 ML UDC PO STA (16:02)
[2024-01-22] MEDS: ONDANSETRON 4 MG/2 ML VIAL IVP STA (16:02)
== END 2024-01-22 16:36 | disposition home or self-care (01) ==
LOC: ED 13:25
DX: R10.13 Epigastric pain (principal); R11.2 Nausea with vomiting, unspecified; F17.200 Nicotine dependence, unspecified, uncomplicated; Z79.899 Other long term (current) drug therapy
CPT/HCPCS: 36415; 80053; 81003; 81025; 83690; 85025; 96374; 99283; 99284; A9270; 81001; 87086

== ENCOUNTER 2024-04-04 12:03 | Outpatient (CLI) | payer MEDICAID ==
[2024-04-04 12:17] LABS: BASOPHILS # (AUTO) 0.1 10^3/uL (0.0-0.1); BASOPHILS % (AUTO) 0.5 %; EOSINOPHILS # (AUTO) 0.1 10^3/uL (0.0-0.7); EOSINOPHILS % (AUTO) 1.2 %; HCT - HEMATOCRIT 41.7 % (37.0-47.0); HGB - HEMOGLOBIN 13.3 g/dL (12.0-16.0); LYMPHOCYTES # (AUTO) 3.8 10^3/uL (1.5-3.5); LYMPHOCYTES % (AUTO) 37.8 %; MEAN CORPUSCULAR HEMOGLOBIN 30.5 pg (27.0-31.0); MEAN CORPUSCULAR HGB CONC 31.9 g/dL (32.0-36.0); MEAN CORPUSCULAR VOLUME 95.6 fL (81.0-99.0); MEAN PLATELET VOLUME 9.7 fL (7.9-10.8); MONOCYTES # (AUTO) 1.1 10^3/uL (0.0-1.0); MONOCYTES % (AUTO) 11.3 %; NEUTROPHILS # (AUTO) 4.9 10^3/uL (1.5-6.6); PLT - PLATELET COUNT 374 10^3/uL (130-450); RED BLOOD COUNT 4.36 10^6/uL (4.20-5.40); RED CELL DISTRIBUTION WIDTH 13.9 % (12.0-15.0)
== END 2024-04-04 12:04 | disposition home or self-care (01) ==
LOC: LAB 12:03
PROVIDERS: ATTEND Nurse Practitioner
DX: R23.8 Other skin changes (principal); Z86.2 Personal history of diseases of the blood and blood-forming organs and certain disorders involving the immune mechanism
CPT/HCPCS: 36415; 82728; 85025

== ENCOUNTER 2024-04-13 10:10 | Emergency (ER) | payer MEDICAID ==
--- NOTE | 2024-04-13 11:20 | ED Physician Documentation ---
History of Present Illness - Stated complaint Stated Complaint: TINGLING FINGERS - Chief complaint Chief Complaint: General - History obtained from History obtained from: Patient - Additonal information Additional information: She recently started topiramate and last night took double dose as she was titrating up. This morning at 8 AM felt tachycardic, confirmed on her smart watch and she felt tingly in the fingertips of both hands. Symptoms lasted about 20 minutes and are now completely resolved without specific intervention. There was no associated chest pain or trouble breathing. 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 - Present Medications Home Medications: Ambulatory Orders Medication Instructions Recorded Confirmed ALPRAZolam [Xanax] 0.5 mg PO Q6HR PRN 11/10/17 01/22/24 Cyclobenzaprine [Flexeril] 10 mg PO TID PRN #20 tablet 08/19/22 04/13/24 Sumatriptan Succinate [Imitrex] 100 mg PO PRN PRN 08/19/22 04/13/24 DULoxetine [Cymbalta] 60 mg PO DAILY 01/22/24 04/13/24 Topiramate [Topamax] 25 mg PO HS 04/13/24 04/13/24 buPROPion HCL [Bupropion Xl] 300 mg PO DAILY 04/13/24 04/13/24 hydroCHLOROthiazide [Hydrodiuril] 25 mg PO DAILY 04/13/24 04/13/24 - Allergies Allergies/Adverse Reactions: Allergies Allergy/AdvReac Type Severity Reaction Status Date / Time adhesive tape Allergy Rash Verified 04/13/24 10:30 Penicillins Allergy Unknown Verified 01/22/24 13:38 - Social History Does the pt smoke?: No Smoking Status: Former smoker Does the pt drink ETOH?: Yes Does the pt have substance abuse?: Yes Substance Use and Type: Marijuana - Immunizations Immunizations are current?: Yes - POLST Patient has POLST: No PD ED PE NORMAL - Vitals Vital signs reviewed: Yes - General General: Alert and oriented X 3, No acute distress - Neck Neck: Supple, no meningeal sign - Cardiac Cardiac: RRR, No murmur - Respiratory Respiratory: No respiratory distress, Clear bilaterally - Abdomen Abdomen: Non tender - Extremities Extremities: No edema, No calf tenderness / cord, Other (Cap refill in fingertips of both hands is normal. Normal sensation in both hands. Normal radial pulses in both wrists.) - Neuro Neuro: Alert and oriented X 3, responder 2-12 intact Eye Opening: Spontaneous Motor: Obeys Commands Verbal: Oriented GCS Score: 15 - Psych Psych: Normal mood, Normal affect Results - Vitals Vitals: Vital Signs - 24 hr 04/13/24 04/13/24 10:30 12:07 Temperature 36.8 C Heart Rate 91 88 Respiratory 28 H 20 Rate Blood Pressure 157/95 H 162/101 H O2 Saturation 100 98 Oxygen O2 Source Room air - EKG (time done) 1125 EKG releavant findings:: EKG personally interpreted by author of this note. Relevant findings are: Rate: Rate (enter#) (77) Rhythm: NSR [place]: Normal Intervals: Normal [place] QRS: Normal Ischemia: Non specific changes (diffuse flat twaves). No: ST elevation c/w ischemia - Labs Labs: Laboratory Tests 04/13/24 04/13/24 04/13/24 11:32 11:32 11:32 WBC 9.3 RBC 4.75 Hgb 14.6 Hct 44.2 MCV 93.1 MCH 30.7 MCHC 33.0 RDW 13.3 Plt Count 404 MPV 10.0 Neut # (Auto) 6.1 Lymph # (Auto) 2.3 [place] # (Auto) 0.8 Eos # (Auto) 0.0 Baso # (Auto) 0.1 Absolute Nucleated RBC 0.00 Nucleated RBC % 0.0 VBG pH 7.400 VBG pCO2 40.0 L VBG pO2 25.1 VBG HCO3 24.2 VBG Total CO2 25.4 VBG O2 Saturation 48.2 L VBG Base Excess -0.5 Sodium 135 Potassium 3.9 Chloride 103 Carbon Dioxide 26 Anion Gap 6.0 BUN 13 Creatinine 1.2 Estimated GFR (MDRD) 48 L Glucose 116 H Calcium 9.8 Magnesium 2.0 Total Bilirubin 0.5 AST 16 ALT 16 Alkaline Phosphatase 83 Total Protein 7.9 Albumin 4.6 Globulin 3.3 Albumin/Globulin Ratio 1.4 PD Medical Decision Making - ED course ED course: She presents with resolved tingling in her fingertips. The timing would suggest that the increase in topiramate dosing may be causative. She appears well with normal CBC, venous blood gas, and CMP. Departure - Departure Disposition: 01 Home, Self Care Clinical Impression: Tingling of both upper extremities Condition: Good Record reviewed to determine appropriate education?: Yes Instructions: ED Paraesthesias Comments: As discussed, I would go back to the 25 mg (single tablet of topiramate tonight, I think your theory that that was what caused your symptoms this morning is probably valid. Call your doctor to arrange a follow-up appointment, make the next available appointment. In the interim, return anytime if worse or if new symptoms develop. Forms: PCP List Discharge Date/Time: 04/13/24 12:11
[2024-04-13 11:37] LABS: BASOPHILS # (AUTO) 0.1 10^3/uL (0.0-0.1); BASOPHILS % (AUTO) 0.6 %; EOSINOPHILS % (AUTO) 0.4 %; HCT - HEMATOCRIT 44.2 % (37.0-47.0); HGB - HEMOGLOBIN 14.6 g/dL (12.0-16.0); LYMPHOCYTES # (AUTO) 2.3 10^3/uL (1.5-3.5); LYMPHOCYTES % (AUTO) 24.7 %; MEAN CORPUSCULAR HEMOGLOBIN 30.7 pg (27.0-31.0); MEAN CORPUSCULAR VOLUME 93.1 fL (81.0-99.0); MONOCYTES # (AUTO) 0.8 10^3/uL (0.0-1.0); MONOCYTES % (AUTO) 8.8 %; NEUTROPHILS # (AUTO) 6.1 10^3/uL (1.5-6.6); NEUTROPHILS % (AUTO) 65.3 %; PLT - PLATELET COUNT 404 10^3/uL (130-450); RED BLOOD COUNT 4.75 10^6/uL (4.20-5.40); RED CELL DISTRIBUTION WIDTH 13.3 % (12.0-15.0); WHITE BLOOD COUNT 9.3 x10^3/uL (4.8-10.8)
[2024-04-13 11:49] LABS: ALBUMIN 4.6 g/dL (3.2-5.5); ALBUMIN/GLOBULIN RATIO 1.4 (1.0-2.2); BILIRUBIN,TOTAL 0.5 mg/dL (0.2-1.0); CALCIUM 9.8 mg/dL (8.5-10.3); CREATININE 1.2 mg/dL (0.6-1.3); POTASSIUM 3.9 mmol/L (3.5-4.5); TOTAL PROTEIN 7.9 g/dL (6.4-8.9)
[2024-04-13 11:50] LABS: VBG HCO3 24.2 mmol/L (23-28); VBG PH 7.4 (7.31-7.41); VBG PO2 25.1 mmHg (25-47); VBG TOTAL CO2 25.4 mmol/L (24-29)
[2024-04-13 11:51] LABS: VBG BASE EXCESS -0.5 mmol/L (-2 - +2); VBG OXYGEN SATURATION 48.2 % (60-80)
[2024-04-13 12:16] VITALS: BP 162/101; O2SAT 98
== END 2024-04-13 12:11 | disposition home or self-care (01) ==
LOC: ED 10:10
DX: R00.0 Tachycardia, unspecified (principal); R20.2 Paresthesia of skin; Z87.891 Personal history of nicotine dependence; Z79.899 Other long term (current) drug therapy
CPT/HCPCS: 36415; 80053; 82803; 83735; 85025; 93005; 99283